=== PATIENT | female | born 1965 | race Caucasian/White ===

== ENCOUNTER → 2020-06-10 12:27 | Outpatient (CLI) | payer OTHER | END | disposition home or self-care (01) | LOC: D.LABREF 12:27 | PROVIDERS: ATTEND Orthopaedic Surgery | DX: M17.11 Unilateral primary osteoarthritis, right knee (principal) ==

== ENCOUNTER 2020-06-23 07:31 | Inpatient (IN) | payer OTHER ==
[~2020-06-23] VITALS: Ht 152.4 cm; Wt 89.8 kg
[2020-06-23] MEDS ORDERED: SYNTHROID150 MCG PO (13:02)
[2020-06-23] MEDS ORDERED: ZOLOFT100 MG PO (13:02)
[2020-06-23] MEDS ORDERED: OMEPRAZOLE40 MG (13:04)
[2020-06-23] MEDS ORDERED: VITAMIN D5000 UNI1 PO (13:05)
[2020-06-24 09:51] LABS: BILIRUBIN NEGATIVE (NEGATIVE); GLUCOSE NEGATIVE (NEGATIVE); KETONE NEGATIVE (NEGATIVE); NITRITE NEGATIVE (NEGATIVE); UROBILINOGEN NORMAL (NORMAL)
[2020-06-24 09:52] LABS: RED CELLS - URINE 0-5 /hpf (0-5); WHITE CELLS - URINE 0-5 /hpf (NEGATIVE)
[2020-06-24 09:53] LABS: BACTERIA MANY /hpf (NEGATIVE)
[2020-06-24 09:56] LABS: BASOPHILS 0.4 % (0-2); HEMATOCRIT 38.8 % (36.0-48.0); HEMOGLOBIN 12.6 g/dL (12-16); IMMATURE GRANULOCYTES 0.2 % (0-5); LYMPHOCYTES 28.6 % (15-50); MCH 27.9 pg (26.0-34.0); MCHC 32.5 g/dL (31.0-37.0); MCV 85.8 fL (80.0-100.0); MEAN PLATELET VOLUME 9.8 fL (7.4-10.4); MONOCYTES 5.7 % (2-11); NEUTROPHILS 61.1 % (40-80); PLATELET COUNT 273 10x3/uL (130-400); RBC 4.52 10x6/uL (4.00-5.40); RDW 13.3 % (11.5-14.5); WBC 5.3 10x3/uL (4.8-10.8)
[2020-06-24 09:58] LABS: CALC OSMOLALITY 279 mosm/kg (275-300); CALCIUM 8.7 mg/dL (8.5-10.1); CARBON DIOXIDE 27.9 mmol/L (21.0-32.0); CHLORIDE - SERUM 104 mmol/L (98-107); CREATININE - SERUM 0.7 mg/dL (0.6-1.3); GLUCOSE 93 mg/dL (74-106); POTASSIUM - SERUM 3.6 mmol/L (3.5-5.1); SODIUM 139 mmol/L (136-145); UREA NITROGEN 18 mg/dL (7-18); eGFR NON AFRICAN AMERICAN > 90 mL/min (90-120)
[2020-06-24 10:01] LABS: APTT 31.7 SECONDS (22.8-39.4); INR 0.97 (0.85-1.17); PROTIME 12.9 SECONDS (11.6-15.0)
[2020-06-29] VITALS (15 sets, daily range): BP systolic 94–137; BP diastolic 35–75; BMI 38.7
[2020-06-29 07:24] LABS: HCG URINE NEGATIVE (NEGATIVE)
--- NOTE | 2020-06-29 09:16 | NUR ---
CAUTERY PAD PLACED ON LEFT THIGH. PLASMA BLADE USED ON SETTING 6/8. CAUTERY PAD LOT #[id number] EXP. 01/14/2022
[2020-06-29] MEDS ORDERED: OMEPRAZOLE40 MG PO (11:43)
[2020-06-29] MEDS ORDERED: SYNTHROID150 MCG PO (11:44)
[2020-06-29] MEDS ORDERED: ZOLOFT100 MG PO (11:45)
[2020-06-29] MEDS ORDERED: VITAMIN D5000 UNI1 PO (11:45)
--- NOTE | 2020-06-29 16:00 | NUR ---
IV THERAPY REMOVED FROM LEFT FOREARM TIP INTACT. RESTARTED IV THERAPY IN LEFT FOREARM. 22G ONE ATTEMPT. CL IN REACH. WCTM
--- NOTE | 2020-06-29 21:13 | NUR ---
REMOVED CPM AFTER 3 HOURS OF THERAPY. PATIENT TOLERATED WELL. DENIES FURTHER NEEDS AT THIS TIME. USING INCENTIVE SPIROMETER ORDERED. CALL LIGHT CLOSE. CPOC.
[2020-06-30] VITALS: BP 104/72
[2020-06-30 04:00] VITALS: BP 108/51
[2020-06-30 05:41] LABS: BASOPHILS 0.1 % (0-2); EOSINOPHILS 0.1 % (0-7); HEMATOCRIT 31.1 % (36.0-48.0); HEMOGLOBIN 10.1 g/dL (12-16); IMMATURE GRANULOCYTES 0.1 % (0-5); LYMPHOCYTES 21.9 % (15-50); MCH 27.6 pg (26.0-34.0); MCHC 32.5 g/dL (31.0-37.0); MEAN PLATELET VOLUME 9.9 fL (7.4-10.4); MONOCYTES 7.3 % (2-11); NEUTROPHILS 70.5 % (40-80); PLATELET COUNT 228 10x3/uL (130-400); RBC 3.66 10x6/uL (4.00-5.40); RDW 13.3 % (11.5-14.5); WBC 7.6 10x3/uL (4.8-10.8)
[2020-06-30 06:00] LABS: ALBUMIN 3.2 g/dL (3.4-5.0); ALKALINE PHOSPHATASE 87 U/L (30-120); ALT (SGPT) 24 U/L (10-68); BILIRUBIN - TOTAL 0.42 mg/dL (0.2-1.3); CALC OSMOLALITY 278 mosm/kg (275-300); CALCIUM 8.2 mg/dL (8.5-10.1); CARBON DIOXIDE 24.7 mmol/L (21.0-32.0); CHLORIDE - SERUM 107 mmol/L (98-107); CREATININE - SERUM 0.8 mg/dL (0.6-1.3); GLUCOSE 105 mg/dL (74-106); POTASSIUM - SERUM 3.8 mmol/L (3.5-5.1); PROTEIN - SERUM 6.4 g/dL (6.4-8.2); SODIUM 140 mmol/L (136-145); UREA NITROGEN 13 mg/dL (7-18); eGFR NON AFRICAN AMERICAN 80 mL/min (90-120)
--- NOTE | 2020-06-30 07:05 | NUR ---
ALERT AND ORIENTED, RESTING IN BED WITH EYES OPEN. NO C/O PAIN. NO S/S OF ACUTE DISTRESS NOTED. BEDREST. POD #1 RIGHT KNEE, DRESSING C/D/I. ON CPM. JOLENE HOSE ON. IV TO LEFT FOREARM, 1/2 NS INFUSING @ 100ML/HR. SITE PATENT WITHOUT REDNESS OR SWELLING. DENIES ANY NEEDS AT THIS TIME. CALL LIGHT IN REACH. WILL CONTINUE TO MONITOR.
--- NOTE | 2020-06-30 07:36 | NUR ---
REQUESTED AND GIVEN ONE HYDROCODONE PO FOR C/O LEFT KNEE PAIN LEVEL 5. WILL MONITOR. ON CPM AT THIS TIME.
[2020-06-30 08:00] VITALS: BP 124/70
[2020-06-30 12:00] VITALS: BP 116/70
[2020-06-30 14:03] VITALS: Ht 152.4 cm; Wt 89.8 kg
--- NOTE | 2020-06-30 15:00 | NUR ---
I have reviewed this patient and I concur with the Shift Assessment completed by the Licensed Practical Nurse today this shift.
[2020-06-30 16:00] VITALS: BP 123/64
--- NOTE | 2020-06-30 18:27 | NUR ---
RESTING IN BED WITH EYES OPEN. NO C/O PAIN. NO S/S OF ACUTE DISTRESS NOTED. CPM ON. DENIES ANY NEEDS AT THIS TIME. CALL LIGHT IN REACH. WILL CONTINUE TO MONITOR.
--- NOTE | 2020-06-30 19:05 | NUR ---
ALERT AND ORIENTED. ON CPM PER PROTOCOL. TOLERATING WELL. ASSISTED PATIENT TO BATHROOM. AMBULATES WELL WITH ONE PERSON ASSIST AND WALKER. PATIENT IV IS PATENT. ASSESSMENT COMPLETE. SEE CHART. DENIES FURTHER NEEDS AT THIS TIME. CALL LIGHT REMAINS CLOSE. CPOC.
[2020-06-30 20:00] VITALS: BP 107/69
[2020-07-01 04:00] VITALS: BP 130/73
[2020-07-01 06:18] LABS: BASOPHILS 0.3 % (0-2); EOSINOPHILS 1.9 % (0-7); HEMOGLOBIN 9.7 g/dL (12-16); LYMPHOCYTES 26.1 % (15-50); MCH 27.6 pg (26.0-34.0); MCHC 32.3 g/dL (31.0-37.0); MCV 85.5 fL (80.0-100.0); MEAN PLATELET VOLUME 9.8 fL (7.4-10.4); MONOCYTES 10.8 % (2-11); NEUTROPHILS 60.9 % (40-80); PLATELET COUNT 229 10x3/uL (130-400); RBC 3.51 10x6/uL (4.00-5.40); RDW 13.3 % (11.5-14.5); WBC 6.3 10x3/uL (4.8-10.8)
[2020-07-01 06:47] LABS: ALBUMIN 2.9 g/dL (3.4-5.0); ALKALINE PHOSPHATASE 90 U/L (30-120); ALT (SGPT) 25 U/L (10-68); BILIRUBIN - TOTAL 0.64 mg/dL (0.2-1.3); CALC OSMOLALITY 275 mosm/kg (275-300); CALCIUM 8.3 mg/dL (8.5-10.1); CARBON DIOXIDE 26.8 mmol/L (21.0-32.0); CHLORIDE - SERUM 108 mmol/L (98-107); CREATININE - SERUM 0.7 mg/dL (0.6-1.3); GLUCOSE 100 mg/dL (74-106); POTASSIUM - SERUM 3.8 mmol/L (3.5-5.1); PROTEIN - SERUM 6.4 g/dL (6.4-8.2); SODIUM 138 mmol/L (136-145); UREA NITROGEN 13 mg/dL (7-18); eGFR NON AFRICAN AMERICAN > 90 mL/min (90-120)
--- NOTE | 2020-07-01 07:00 | NUR ---
RESTING IN BED WITH EYES CLOSED. RESPIRATIONS EVEN AND UNLABORED. NO S/S OF ACUTE DISTRESS NOTED. UP WITH WALKER. POD #2 RIGHT TOTAL KNEE. JOLENE ANSON AND SCDS ON. IV TO LEFT FOREARM, 1/2 NS INFUSING @ 100ML/HR. SITE PATENT WITHOUT REDNESS OR SWELLING. DRESSING TO RIGHT KNEE C/D/I. CALL LIGHT IN REACH. WILL CONTINUE TO MONITOR.
[2020-07-01 09:51] VITALS: BP 114/58
--- NOTE | 2020-07-01 13:27 | NUR ---
I have reviewed this patient and I concur with the Shift Assessment completed by the Licensed Practical Nurse today this shift.
[2020-07-01 13:32] VITALS: BP 104/51
--- NOTE | 2020-07-01 15:11 | NUR ---
FAMILY IN ROOM. NO NEEDS AT THIS TIME. WCTM
[2020-07-01 16:45] VITALS: BP 104/55
--- NOTE | 2020-07-01 16:53 | NUR ---
FAMILY IN ROOM. ASSISTED TO BATHROOM AND BACK. FRESH WATER REQUESTED AND PROVIDED. CL IN REACH. TM
[2020-07-01 20:00] VITALS: BP 145/67
[2020-07-02] VITALS: BP 111/50
--- NOTE | 2020-07-02 03:25 | NUR ---
ALERT AND ORENTED ABLE TO VOICE NEEDS AND WANTS TO STAFF. UP WITH ASSIST. JOLENE HOUSE AND DRESS IN ITACT TO RIGHT LEG. CPM PER ORDERS. USES WALKER TO AMBULATED TO BATHROOM. WATER AND CALL LIFGT IN REACH. NORCO FOR PAIN CONTROL. NO S/S OD DISTRESS.
[2020-07-02 03:35] VITALS: BP 119/70
[2020-07-02 06:12] LABS: BASOPHILS 0.2 % (0-2); EOSINOPHILS 4.8 % (0-7); HEMATOCRIT 28.5 % (36.0-48.0); HEMOGLOBIN 9.1 g/dL (12-16); IMMATURE GRANULOCYTES 0.2 % (0-5); MCH 27.2 pg (26.0-34.0); MCHC 31.9 g/dL (31.0-37.0); MCV 85.3 fL (80.0-100.0); MEAN PLATELET VOLUME 9.9 fL (7.4-10.4); MONOCYTES 8.4 % (2-11); NEUTROPHILS 69.4 % (40-80); PLATELET COUNT 215 10x3/uL (130-400); RBC 3.34 10x6/uL (4.00-5.40); RDW 13.1 % (11.5-14.5); WBC 5.8 10x3/uL (4.8-10.8)
[2020-07-02 06:40] LABS: ALBUMIN 2.7 g/dL (3.4-5.0); ALKALINE PHOSPHATASE 95 U/L (30-120); ALT (SGPT) 31 U/L (10-68); BILIRUBIN - TOTAL 0.83 mg/dL (0.2-1.3); CALC OSMOLALITY 272 mosm/kg (275-300); CALCIUM 8.1 mg/dL (8.5-10.1); CARBON DIOXIDE 26.5 mmol/L (21.0-32.0); CHLORIDE - SERUM 104 mmol/L (98-107); CREATININE - SERUM 0.7 mg/dL (0.6-1.3); GLUCOSE 101 mg/dL (74-106); POTASSIUM - SERUM 3.5 mmol/L (3.5-5.1); PROTEIN - SERUM 6.3 g/dL (6.4-8.2); SODIUM 137 mmol/L (136-145); UREA NITROGEN 9 mg/dL (7-18); eGFR NON AFRICAN AMERICAN > 90 mL/min (90-120)
--- NOTE | 2020-07-02 08:40 | NUR ---
PT ALERT AND ORIENTED X4 UPON ENTERING, UP RIGHT IN BED EATING BREAKFAST. ADMINISTERED MEDICATION, NO DIFFICULTIES. ASSESSMENT PERFORMED. DENIES ANY NEEDS. WILL CONTINUE TO MONITOR.
[2020-07-02 09:12] VITALS: BP 109/48
--- NOTE | 2020-07-02 09:16 | NUR ---
ADMINISTERED PRN NORCO FOR 6/10 PAIN IN RIGHT KNEE AFTER AMBULATING PT TO THE BATHROOM AND BACK TO BED. PT STILL ON CPM MACHINE. DENIES ANY OTHER NEEDS WILL CONTINUE TO MONITOR.
[2020-07-02] MEDS ORDERED: HYDROCODON-ACE1 EA10 PO (10:55)
[2020-07-02] MEDS ORDERED: ELIQUIS2.5 MG PO (10:56)
--- NOTE | 2020-07-02 11:03 | MORECARE ---
CASE MANAGEMENT DISCHARGE SUMMARY PATIENT: EDWAR MIX UNIT: [id number] ADM DATE: 06/29/20 AGE: 54 : [birth year] SEX: F ROOM/BED: D.2238 AUTHOR: JACQUIE,DOC PHYSICIAN: REFERRING PHYSICIAN: SENAIT LIMON MD DATE OF SERVICE: 07/02/20 Discharge Plan Patient Name: EDWAR MIX Facility: [facility]:[place] : 1965 Planned Disposition: Home Health Service Anticipated Discharge Date: Discharge Date: Expected LOS: Initial Reviewer: [id number] Initial Review Date: 07/02/2020 Generated: 07/02/20 12:02 pm Comments DCP- Discharge Planning Updated by [id number]: Elyssa Manrique on 07/02/20 10:[address] Patient Name: EDWAR MIX Admission Status: Elective Accout number: [id number] Admission Date: 06-29-2020 : 1965 Admission Diagnosis:UNILATERAL PRIMARY OSTEOARTHRITIS, RIGHT KNEE Attending: SENAIT LIMON Current LOS: 3 Anticipated DC Date: Planned Disposition: Home Health Service Primary Insurance: [employer] PPO Discharge Planning Comments: CM met with patient at bedside after explaining CM role and obtaining verbal consent. CM discussed availability / needs of home health, REHAB and medical equipment. [facility] HAS ALL EQUIPMENT NEEDED FOR AFTER TOTAL KNEE SURGERY. CATE SIGNED FOR [facility] OR ANY THAT IS AVAILABLE TO SEE. REFERRAL FAXED TO [facility]. WAITINNG CALL BACK THEN PATIENT CAN BE DC'D TO HOME. Construction Foreman: Elyssa Manrique DCPIA - Discharge Planning Initial Assessment Updated by [email or web address]: Elyssa Manrique on 07/02/20 10:59 am * Is the patient Alert and Oriented? Yes * Other Equipment CPM,WALKER,SHOWER CHAIR,ICE MACHINE * Community resources currently utilized None * Additional services required to return to the preadmission environment? Yes * Can the patient safely return to the preadmission environment? Yes * Has this patient been hospitalized within the prior 30 days at any hospital? No External Providers External Provider: [facility] Next Contact Date: Service Request Date: Service Type: Resolution: Reviewer: Comments: Coverage Notice Reviewer: [email or web address] Mechelle Manrique Notice Issued Date-Time: 07/02/2020 11:01 Notice Type: Patient Choice Letter Notice Delivered To: Relationship to Patient: Nuts And Bolts Assembler Name: Delivery Method: HAND - Hand Delivered Obdulia Days: Prior Verbal Notification: Recipient Understood Notice: Yes Recipient Signature: Yes Med Rec Note Co-signed by Attending: Coverage Notice Comment: Patient Name: EDWAR MIX Page [phone] at 1103 All edits/amendments must be made on the electronic document DICTATION DATE: 07/02/20 110 LOCKSTITCH SHOULDER JOINER: COLLIN 07/02/20 1103 RPT#: [id number] DC DATE: STATUS: ADM IN [facility] [address] [place] [address] END OF REPORT
--- NOTE | 2020-07-02 11:54 | NUR ---
I have reviewed this patient and I concur with the Shift Assessment completed by the Licensed Practical Nurse today this shift.
--- NOTE | 2020-07-02 14:14 | NUR ---
PT SIGNED ALL NECESSARY DISHCHARGE PAPERWORK. IV REMOVED FROM LEFT WRIST, CATHETER TIP INTACT, COVERED SITE WITH 2X2 AND GAUZE. TOLERATED WELL. CHANGED DRESSING PER ORDER AND SEND HOME SUPPLIES FOR HOME HEALTH PER ORDER. ESCORTED DOWN VIA WHEELCHAIR BY ME, THE NURSE.
--- NOTE | 2020-07-03 09:10 | MORECARE ---
CASE MANAGEMENT DISCHARGE SUMMARY PATIENT: EDWAR MIX UNIT: [id number] ADM DATE: 06/29/20 AGE: 54 : 69 SEX: F ROOM/BED: D.2238 AUTHOR: JACQUIE,DOC PHYSICIAN: REFERRING PHYSICIAN: SENAIT LIMON MD DATE OF SERVICE: 07/03/20 Discharge Plan Patient Name: EDWAR MIX Facility: [facility]:[place] : 1965 Planned Disposition: Home Health Service Anticipated Discharge Date: Discharge Date: 07/02/2020 Expected LOS: Initial Reviewer: [email or web address] Initial Review Date: 07/02/2020 Generated: 07/03/20 10:09 am Comments DCP- Discharge Planning Updated by [email or web address]: Elyssa Manrique on 07/02/20 10:[address] Patient Name: EDWAR MIX Admission Status: Elective Accout number: [id number] Admission Date: 06-29-2020 : 1965 Admission Diagnosis:UNILATERAL PRIMARY OSTEOARTHRITIS, RIGHT KNEE Attending: SENAIT LIMON Current LOS: 3 Anticipated DC Date: Planned Disposition: Home Health Service Primary Insurance: [facility] PPO Discharge Planning Comments: CM met with patient at bedside after explaining CM role and obtaining verbal consent. CM discussed availability / needs of home health, REHAB and medical equipment. [facility] HAS ALL EQUIPMENT NEEDED FOR AFTER TOTAL KNEE SURGERY. CATE SIGNED FOR [facility] OR ANY THAT IS AVAILABLE TO SEE. REFERRAL FAXED TO [facility]. WAITINNG CALL BACK THEN PATIENT CAN BE DC'D TO HOME. Feed Mill Supervisor: Elyssa Manrique DCPIA - Discharge Planning Initial Assessment Updated by [email or web address]: Elyssa Manrique on 07/02/20 10:59 am * Is the patient Alert and Oriented? Yes * Other Equipment CPM,WALKER,SHOWER CHAIR,ICE MACHINE * Community resources currently utilized None * Additional services required to return to the preadmission environment? Yes * Can the patient safely return to the preadmission environment? Yes * Has this patient been hospitalized within the prior 30 days at any hospital? No Coverage Notice Reviewer: [id number] - Elyssa Manrique Notice Issued Date-Time: 07/02/2020 11:01 Notice Type: Patient Choice Letter Notice Delivered To: Relationship to Patient: Spiral Machine Operator Name: Delivery Method: HAND - Hand Delivered Obdulia Days: Prior Verbal Notification: Recipient Understood Notice: Yes Recipient Signature: Yes Med Rec Note Co-signed by Attending: Coverage Notice Comment: [facility], OR ANY AVAILABLE AND ACCEPTS INSURANCE. Last DP export: 07/02/20 10:03 am Patient Name: EDWAR MIX Page [id number] at 0910 All edits/amendments must be made on the electronic document DICTATION DATE: 07/03/20908 OFFLINE CUTTER: COLLIN 07/03/20908 RPT#: [id number] DC DATE:07/02/20 STATUS: DIS IN [facility] [address] [place] [address] END OF REPORT
== END 2020-07-02 14:15 | disposition home health service (06) | DRG 470 ==
LOC: D.SDCHOLD 06-29 06:38 → D.MS 06-29 06:38 → D.SDCHOLD 06-29 08:30 → D.MS 06-29 10:30
PROVIDERS: Family Medicine; ADMIT Orthopaedic Surgery; ATTEND Orthopaedic Surgery
PROC: 0SRC0JZ Replacement of Right Knee Joint with Synthetic Substitute, Open Approach (ICD-10-PCS; principal; 2020-06-29 08:30)
DX: M17.11 Unilateral primary osteoarthritis, right knee (principal); E03.9 Hypothyroidism, unspecified; E66.9 Obesity, unspecified; Z68.38 Body mass index [BMI] 38.0-38.9, adult; K21.9 Gastro-esophageal reflux disease without esophagitis; F32.9 Major depressive disorder, single episode, unspecified; F41.9 Anxiety disorder, unspecified; Z87.891 Personal history of nicotine dependence